=== PATIENT | male | born 1955 | race African-American/Black ===

== ENCOUNTER 2016-11-11 12:50 | Inpatient (IN) | payer OTHER ==
[2016-11-11 14:13] VITALS: BMI 26.2
[2016-11-11] MEDS ORDERED: hydrOXYzine PAMOATE 50 MG CAPSULE (FP) PO PRN (17:09)
[2016-11-11] MEDS ORDERED: MAGNESIUM HYDROX 2400MG/30ML ORAL SUSPENSION 30 ML CUP PO PRN (17:09)
[2016-11-11] MEDS ORDERED: chlordiazePOXIDE HCL 25 MG CAPSULE PO PRN (17:09)
[2016-11-11] MEDS ORDERED: ACETAMINOPHEN 325 MG TABLET (FP) PO PRN (17:09)
[2016-11-11] MEDS ORDERED: MENTHOL/PHENOL 1 EACH UD MM PRN (17:09)
[2016-11-11] MEDS ORDERED: chlordiazePOXIDE HCL 25 MG CAPSULE PO ONE (17:09)
[2016-11-11] MEDS ORDERED: MAGNESIUM CITRATE 300 ML BOTTLE PO PRN (17:09)
[2016-11-11] MEDS ORDERED: IBUPROFEN 400 MG TABLET (FP) PO PRN (17:09)
[2016-11-11] MEDS ORDERED: LOPERAMIDE HCL 2 MG CAPSULE PO PRN (17:09)
[2016-11-11] MEDS ORDERED: MAG HYDROX/AL HYDROX/SIMETH 30 ML UNIT-DOSE CUP PO PRN (17:09)
[2016-11-11] MEDS ORDERED: NICOTINE POLACRILEX 2 MG GUM BC PRN (17:09)
[2016-11-11] MEDS ORDERED: P-EPHED 60MG/TRIPROLIDI 2.5MG TABLET PO PRN (17:09)
[2016-11-11] MEDS ORDERED: guaiFENesin/D-METHORPHAN HB 10 ML UNIT-DOSE CUPS PO PRN (17:09)
--- NOTE | 2016-11-11 17:17 | HP ---
CIWA Score - CIWA Score Nausea/Vomitin-Mild Nausea/No Vomiting (diarrhea) Muscle Tremors: 4-Moderate,w/Arms Extend Anxiety: 4-Mod. Anxious/Guarded Agitation: 4-Moderately Restless Paroxysmal Sweats: 3 Orientation: 0-Oriented Tacttile Disturbances: 0-None Auditory Disturbances: 0-None Visual Disturbances: 1-Very Mild Sensitivity Headache: 0-None Present CIWA-Ar Total Score: 17 Admission ROS BHS - HPI Chief Complaint: Withdrawal sx. Allergies/Adverse Reactions: Allergies Allergy/AdvReac Type Severity Reaction Status Date / Time No Known Drug Allergies Allergy Unknown Verified 11/17/11 17:00 cream cheese Allergy Mild Hives Uncoded 11/17/11 15:09 History of Present Illness: 61 y/o man with a long hx. of alcoholism is admitted for detox. Pt. has been in previous detox,report one yr. sobriety. Exam Limitations: No Limitations - Ebola screening Have you traveled outside of the country in the last 21 days: No Have you had contact with anyone from an Ebola affected area: No Have you been sick,other than usual withdrawal symptoms: No Do you have a fever: No - Review of Systems Constitutional: Diaphoresis EENT: reports: No Symptoms Reported Respiratory: reports: No Symptoms reported GI: reports: Diarrhea, Nausea, Abdominal cramping : reports: No Symptoms Reported Musculoskeletal: reports: No Symptoms Reported Integumentary: reports: Sweating Neuro: reports: Tremors, Other (Blackouts) Endocrine: reports: No Symptoms Reported Hematology: reports: No Symptoms Reported Psychiatric: reports: No Sypmtoms Reported Other Systems: Reviewed and Negative Patient History - Patient Medical History Hx Anemia: No Hx Asthma: No Hx Chronic Obstructive Pulmonary Disease (COPD): No Hx Cancer: No Hx Cardiac Disorders: No Hx Congestive Heart Failure: No Hx Hypertension: Yes (Metoprolol 25mg daily) Hx Hypercholesterolemia: Yes (zocor 20) Hx Pacemaker: No HX Cerebrovascular Accident: No Hx Seizures: No Hx Dementia: No Hx Diabetes: No Hx Gastrointestinal Disorders: No Hx Liver Disease: No Hx Genitourinary Disorders: No Hx Sexually Transmitted Disorders: No Hx Renal Disease (ESRD): No Hx Thyroid Disease: No Hx Human Immunodeficiency Virus (HIV): No Hx Hepatitis C: No Hx Depression: No Hx Suicide Attempt: No Hx Bipolar Disorder: No Hx Schizophrenia: No - Patient Surgical History Past Surgical History: Yes Hx Neurologic Surgery: No Hx Cataract Extraction: No Hx Cardiac Surgery: No Hx Lung Surgery: No Hx Breast Surgery: No Hx Breast Biopsy: No Hx Abdominal Surgery: No Hx Appendectomy: No Hx Cholecystectomy: No Hx Genitourinary Surgery: No Hx Section: No Hx Orthopedic Surgery: No Other Surgical History: hx of tonsilectomy Anesthesia Reaction: No - PPD History Previous Implant?: Yes Documented Results: Negative w/proof Date: 11/19/11 Results: 0 mm PPD to be Administered?: Yes - Smoking Cessation Smoking history: Current every day smoker Have you smoked in the past 12 months: Yes Aproximately how many cigarettes per day: 10 Hx Chewing Tobacco Use: No Initiated information on smoking cessation: Yes 'Breaking Loose' booklet given: 11/11/16 - Substance & Tx. History Hx Alcohol Use: Yes Hx Substance Use: Yes Substance Use Type: Alcohol, Cocaine Hx Substance Use Treatment: Yes (Detox in 2011,) - Substances Abused Alcohol Route: Oral Frequency: Daily Amount used: pint henessy, 6pk beer Age of first use: 13 Date of Last Use: 11/10/16 Cocaine Route: Inhalation Frequency: Daily Amount used: $100 Age of first use: 28 Date of Last Use: 11/10/16 Family Disease History - Family Disease History Family Disease History: Diabetes: Father (HTN), Heart Disease: Father Admission Physical Exam BHS - Vital Signs Vital Signs: Vital Signs - 24 hr 11/11/16 14:10 Temperature 97.2 F L Pulse Rate 73 Respiratory 20 Rate Blood Pressure 113/56 - Physical General Appearance: Yes: Tremorous, Irritable, Sweating, Anxious HEENTM: Yes: Within Normal Limits Respiratory: Yes: Chest Non-Tender, Lungs Clear, Normal Breath Sounds Neck: Yes: Supple Breast: Yes: Breast Exam Deferred Cardiology: Yes: Regular Rhythm, Regular Rate, S1, S2 Abdominal: Yes: Normal Bowel Sounds, Non Tender, Soft Genitourinary: Yes: Within Normal Limits Back: Yes: Within Normal Limits Musculoskeletal: Yes: Within Normal Limits Extremities: Yes: Tremors Neurological: Yes: Fully Oriented, Alert Integumentary: Yes: Diaphoresis Lymphatic: Yes: Within Normal Limits - Diagnostic (1) Alcohol dependence with uncomplicated withdrawal Current Visit: Yes Status: Acute (2) Cocaine dependence, uncomplicated Current Visit: Yes Status: Acute Cleared for Admission [facility] - Detox or Rehab [facility] Level of Care: Medically Managed Detox Regimen/Protocol: Librium [facility] Breath Alcohol Content Breath Alcohol Content: 0 Urine Drug Screen - Results Drug Screen Negative: No Urine Drug Screen Results: TAMAR-Cocaine, BZO-Benzodiazepines
[2016-11-11] MEDS: NICOTINE 21 MG/24 HOURS TOPICAL PATCH TD SCH (18:29)
[2016-11-11] MEDS: METOPROLOL TARTRATE 25 MG TABLET (FP) PO SCH (18:31)
[2016-11-11 22:08] LABS: URINE APPEARANCE CLEAR; URINE BILIRUBIN NEGATIVE (NEGATIVE); URINE BLOOD NEGATIVE (NEGATIVE); URINE COLOR LTYELLOW; URINE GLUCOSE (UA) NEGATIVE (NEGATIVE); URINE KETONE NEGATIVE (NEGATIVE); URINE LEUK ESTERASE NEGATIVE (NEGATIVE); URINE NITRITE NEGATIVE (NEGATIVE); URINE PROTEIN NEGATIVE (NEGATIVE); URINE UROBILINOGEN NEGATIVE mg/dL (0.2-1.0)
[2016-11-11] MEDS: ATORVASTATIN CA 20 MG TABLET (FP) PO SCH (22:12)
[2016-11-11] MEDS: chlordiazePOXIDE HCL 25 MG CAPSULE PO SCH (22:12)
[2016-11-11] MEDS: THIAMINE HCL 100 MG TABLET (FP) PO SCH (22:12)
[2016-11-11] MEDS: diphenhydrAMINE HCL 50 MG CAPSULE PO PRN (22:13)
[2016-11-12] MEDS: chlordiazePOXIDE HCL 25 MG CAPSULE PO SCH ×4 (05:31→22:06)
[2016-11-12 10:09] LABS: MCH 27.8 pg (25.7-33.7); MCHC 32.3 g/dl (32.0-35.9); MEAN PLT VOLUME 8.9 fl (7.5-11.1); PLATELET COUNT 237 K/MM3 (134-434); RDW 13.9 % (11.9-15.9)
[2016-11-12 10:18] LABS: ALBUMIN 3.3 g/dl (3.4-5.0); ANION GAP 8 (8-16); CALCIUM 8.7 mg/dL (8.5-10.1); CO2 27 mmol/L (21-32); GLUCOSE,RANDOM 139 mg/dL (74-106)
[2016-11-12 10:22] LABS: ALK PHOS 78 U/L (45-117); BILIRUBIN,TOTAL 0.4 mg/dL (0.2-1.0); CREATININE 1.1 mg/dL (0.7-1.3); SGOT/AST 17 U/L (15-37); SGPT/ALT 44 U/L (12-78); TOT PROT 6.4 g/dl (6.4-8.2)
--- NOTE | 2016-11-12 10:40 | PN ---
S Progress Note (SOAP) Subjective: ALERT,IRRITABLE,ANXIOUS,INTERRUPTED SLEEP,TREMOR Objective: 11/12/16 10:37 Vital Signs Temperature 96.8 F L 11/12/16 09:51 Pulse Rate 77 11/12/16 09:51 Respiratory Rate 18 11/12/16 09:51 Blood Pressure 129/71 11/12/16 09:51 O2 Sat by Pulse Oximetry (%) EKG NSR,NORMAL ECG Laboratory Last Values WBC 6.0 K/mm3 (4.0-10.0) 11/12/16 07:00 RBC 4.46 M/mm3 (4.00-5.60) 11/12/16 07:00 Hgb 12.4 GM/dL (11.7-16.9) 11/12/16 07:00 Hct 38.4 % (35.4-49) 11/12/16 07:00 MCV 86.0 fl (80-96) 11/12/16 07:00 MCH 27.8 pg (25.7-33.7) 11/12/16 07:00 MCHC 32.3 g/dl (32.0-35.9) 11/12/16 07:00 RDW 13.9 % (11.9-15.9) 11/12/16 07:00 Plt Count 237 K/MM3 (134-434) 11/12/16 07:00 MPV 8.9 fl (7.5-11.1) 11/12/16 07:00 Sodium 143 mmol/L (136-145) 11/12/16 07:00 Potassium 3.9 mmol/L (3.5-5.1) 11/12/16 07:00 Chloride 108 mmol/L (98-107) H 11/12/16 07:00 Carbon Dioxide 27 mmol/L (21-32) 11/12/16 07:00 Anion Gap 8 (8-16) 11/12/16 07:00 BUN 13 mg/dL (7-18) 11/12/16 07:00 Creatinine 1.1 mg/dL (0.7-1.3) 11/12/16 07:00 Creat Clearance w eGFR > 60 (>60) 11/12/16 07:00 Random Glucose 139 mg/dL (74-106) H 11/12/16 07:00 Calcium 8.7 mg/dL (8.5-10.1) 11/12/16 07:00 Total Bilirubin 0.4 mg/dL (0.2-1.0) D 11/12/16 07:00 AST 17 U/L (15-37) D 11/12/16 07:00 ALT 44 U/L (12-78) 11/12/16 07:00 Alkaline Phosphatase 78 U/L (45-117) 11/12/16 07:00 Total Protein 6.4 g/dl (6.4-8.2) 11/12/16 07:00 Albumin 3.3 g/dl (3.4-5.0) L 11/12/16 07:00 Urine Color Ltyellow 11/11/16 21:45 Urine Appearance Clear 11/11/16 21:45 Urine pH 5.0 (5.0-8.0) 11/11/16 21:45 Urine Protein Negative (NEGATIVE) 11/11/16 21:45 Urine Glucose (UA) Negative (NEGATIVE) 11/11/16 21:45 Urine Ketones Negative (NEGATIVE) 11/11/16 21:45 Urine Blood Negative (NEGATIVE) 11/11/16 21:45 Urine Nitrite Negative (NEGATIVE) 11/11/16 21:45 Urine Bilirubin Negative (NEGATIVE) 11/11/16 21:45 Urine Urobilinogen Negative mg/dL (0.2-1.0) 11/11/16 21:45 Ur Leukocyte Esterase Negative (NEGATIVE) 11/11/16 21:45 Assessment: 11/12/16 10:39 WITHDRAWAL SYMPTOM Plan: CONTINUE DETOX,INITIAL GLUCOSE 139,FASTING GLUCOSE IN AM
[2016-11-12] MEDS: METOPROLOL TARTRATE 25 MG TABLET (FP) PO SCH (11:01)
[2016-11-12] MEDS: PRENATAL VITAMINS W/ FOLIC ACID TABLET (FP) PO SCH (11:01)
[2016-11-12] MEDS: NICOTINE 21 MG/24 HOURS TOPICAL PATCH TD SCH (11:03)
--- NOTE | 2016-11-12 11:15 | EKG ---
Test Reason : Blood Pressure : / mmHG Vent. Rate : 073 BPM Atrial Rate : 073 BPM P-R Int : 170 ms QRS Dur : 098 ms QT Int : 410 ms P-R-T Axes : 069 -27 -02 degrees QTc Int : 451 ms NORMAL SINUS RHYTHM NORMAL ECG NO PREVIOUS ECGS AVAILABLE Confirmed by MATT NOBLES MD ([id number]) on 11/12/2016 11:15:01 AM Referred By: Confirmed By:MATT NOBLES MD
[2016-11-12] MEDS ORDERED: PNEUMOC 13-VAL CONJ-DIP CRM/PF 0.5 ML DISP.SYRIN IM ONE (12:00)
[2016-11-12] MEDS: THIAMINE HCL 100 MG TABLET (FP) PO SCH (22:05)
[2016-11-12] MEDS: diphenhydrAMINE HCL 50 MG CAPSULE PO PRN (22:05)
[2016-11-12] MEDS: ATORVASTATIN CA 20 MG TABLET (FP) PO SCH (22:06)
[2016-11-13] MEDS: chlordiazePOXIDE HCL 25 MG CAPSULE PO SCH ×3 (06:06→17:30)
[2016-11-13] MEDS: PRENATAL VITAMINS W/ FOLIC ACID TABLET (FP) PO SCH (10:59)
[2016-11-13] MEDS: METOPROLOL TARTRATE 25 MG TABLET (FP) PO SCH (10:59)
[2016-11-13] MEDS: NICOTINE 21 MG/24 HOURS TOPICAL PATCH TD SCH (10:59)
--- NOTE | 2016-11-13 12:18 | PN ---
[facility] CIWA - CIWA Score Nausea/Vomitin Muscle Tremors: 3 Anxiety: 3 Agitation: 2 Paroxysmal Sweats: 1-Minimal Palms Moist Orientation: 0-Oriented Tacttile Disturbances: 1-Very Mild Itch/Numbness Auditory Disturbances: 1-Very Mild Visual Disturbances: 1-Very Mild Sensitivity Headache: 2-Mild CIWA-Ar Total Score: 17 S Progress Note (SOAP) Subjective: ALERT,IRRITABLE,ANXIOUS,INTERRUPTED SLEEP,INSOMNIA Objective: 11/13/16 12:16 Vital Signs Temperature 97.2 F L 11/13/16 10:23 Pulse Rate 85 11/13/16 10:23 Respiratory Rate 18 11/13/16 10:23 Blood Pressure 119/74 11/13/16 10:23 O2 Sat by Pulse Oximetry (%) EKG NSR 11/13/16 12:16 Laboratory Last Values WBC 6.0 K/mm3 (4.0-10.0) 11/12/16 07:00 RBC 4.46 M/mm3 (4.00-5.60) 11/12/16 07:00 Hgb 12.4 GM/dL (11.7-16.9) 11/12/16 07:00 Hct 38.4 % (35.4-49) 11/12/16 07:00 MCV 86.0 fl (80-96) 11/12/16 07:00 MCH 27.8 pg (25.7-33.7) 11/12/16 07:00 MCHC 32.3 g/dl (32.0-35.9) 11/12/16 07:00 RDW 13.9 % (11.9-15.9) 11/12/16 07:00 Plt Count 237 K/MM3 (134-434) 11/12/16 07:00 MPV 8.9 fl (7.5-11.1) 11/12/16 07:00 Sodium 143 mmol/L (136-145) 11/12/16 07:00 Potassium 3.9 mmol/L (3.5-5.1) 11/12/16 07:00 Chloride 108 mmol/L (98-107) H 11/12/16 07:00 Carbon Dioxide 27 mmol/L (21-32) 11/12/16 07:00 Anion Gap 8 (8-16) 11/12/16 07:00 BUN 13 mg/dL (7-18) 11/12/16 07:00 Creatinine 1.1 mg/dL (0.7-1.3) 11/12/16 07:00 Creat Clearance w eGFR > 60 (>60) 11/12/16 07:00 Random Glucose 139 mg/dL (74-106) H 11/12/16 07:00 Fasting Glucose 140 mg/dL (70-105) H 11/13/16 08:00 Calcium 8.7 mg/dL (8.5-10.1) 11/12/16 07:00 Total Bilirubin 0.4 mg/dL (0.2-1.0) D 11/12/16 07:00 AST 17 U/L (15-37) D 11/12/16 07:00 ALT 44 U/L (12-78) 11/12/16 07:00 Alkaline Phosphatase 78 U/L (45-117) 11/12/16 07:00 Total Protein 6.4 g/dl (6.4-8.2) 11/12/16 07:00 Albumin 3.3 g/dl (3.4-5.0) L 11/12/16 07:00 Urine Color Ltyellow 11/11/16 21:45 Urine Appearance Clear 11/11/16 21:45 Urine pH 5.0 (5.0-8.0) 11/11/16 21:45 Ur Specific [place] 1.025 (1.005-1.025) 11/11/16 21:45 Urine Protein Negative (NEGATIVE) 11/11/16 21:45 Urine Glucose (UA) Negative (NEGATIVE) 11/11/16 21:45 Urine Ketones Negative (NEGATIVE) 11/11/16 21:45 Urine Blood Negative (NEGATIVE) 11/11/16 21:45 Urine Nitrite Negative (NEGATIVE) 11/11/16 21:45 Urine Bilirubin Negative (NEGATIVE) 11/11/16 21:45 Urine Urobilinogen Negative mg/dL (0.2-1.0) 11/11/16 21:45 Ur Leukocyte Esterase Negative (NEGATIVE) 11/11/16 21:45 RPR Titer Nonreactive (NONREACTIVE) 11/12/16 07:00 Assessment: 11/13/16 12:17 WITHDRAWAL SYMPTOM Plan: CONTINUE DETOX,BGM BID MONITORING,FASTING GLUCOSE 140
[2016-11-13] MEDS: chlordiazePOXIDE 5 MG CAPSULE PO SCH (22:09)
[2016-11-13] MEDS: ATORVASTATIN CA 20 MG TABLET (FP) PO SCH (22:09)
[2016-11-13] MEDS: diphenhydrAMINE HCL 50 MG CAPSULE PO PRN (22:09)
[2016-11-13] MEDS: THIAMINE HCL 100 MG TABLET (FP) PO SCH (22:09)
[2016-11-14] MEDS: diphenhydrAMINE HCL 50 MG CAPSULE PO PRN ×2 (01:18→22:28)
[2016-11-14] MEDS: chlordiazePOXIDE 5 MG CAPSULE PO SCH ×3 (06:25→18:08)
[2016-11-14] MEDS: METOPROLOL TARTRATE 25 MG TABLET (FP) PO SCH (11:01)
[2016-11-14] MEDS: PRENATAL VITAMINS W/ FOLIC ACID TABLET (FP) PO SCH (11:01)
[2016-11-14] MEDS: NICOTINE 21 MG/24 HOURS TOPICAL PATCH TD SCH (11:04)
--- NOTE | 2016-11-14 14:20 | PN ---
S Progress Note (SOAP) Subjective: alert,irritable,anxious,interrupted sleep Objective: 11/14/16 14:18 Vital Signs Temperature 97.0 F L 11/14/16 10:00 Pulse Rate 84 11/14/16 10:00 Respiratory Rate 18 11/14/16 10:00 Blood Pressure 139/77 11/14/16 10:00 O2 Sat by Pulse Oximetry (%) Assessment: 11/14/16 14:19 withdrawal symptom Plan: continue detox,discharge in am at 0700am,patient will follow up with his physician in [place] for bgm monitoring
[2016-11-14] MEDS: ATORVASTATIN CA 20 MG TABLET (FP) PO SCH (22:28)
[2016-11-14] MEDS: THIAMINE HCL 100 MG TABLET (FP) PO SCH (22:28)
[2016-11-14] MEDS: chlordiazePOXIDE HCL 10 MG CAPSULE PO SCH (22:29)
[2016-11-15 06:24] VITALS: BP 116/74; PULSE 67; TEMP 98.1
[2016-11-15] MEDS: chlordiazePOXIDE HCL 10 MG CAPSULE PO SCH (06:28)
--- NOTE | 2016-11-15 08:21 | DS ---
[facility] Detox Discharge Summary Admission Date: 11/11/16 Discharge Date: 11/15/16 - History Present History: Alcohol Dependence, Cocaine Dependence Additional Comments: FOLLOW UP WITH AFTER [facility] PROGRAM ARRANGEMENT AND PMD FOR MEDICAL PROBLEM AND HYPERGLYCEMIA Pertinent Past History: HEYPERTENSION HYPERCHOLESTEROLEMIA - Physical Exam Results Vital Signs: Vital Signs Temperature 98.1 F 11/15/16 06:23 Pulse Rate 67 11/15/16 06:23 Respiratory Rate 16 11/15/16 06:23 Blood Pressure 116/74 11/15/16 06:23 O2 Sat by Pulse Oximetry (%) Pertinent Admission Physical Exam Findings: WITHDRAWAL SYMPTOM - Treatment Hospital Course: Detox Protocol Followed, Detoxed Safely, Responded well, Discharged Condition Good Patient has Accepted a Rehab Referral to: DECLINED - Medication Discharge Medications: Ambulatory Orders Atorvastatin Ca [Lipitor] 20 mg PO HS 11/13/16 Metoprolol Tartrate [Lopressor] 25 mg PO DAILY 11/13/16 - AMA Did Patient Leave Against Medical Advice: No
== END 2016-11-15 07:10 | disposition home or self-care (01) | DRG 774 ==
LOC: YASAS 12:50 → Y6N 17:10
PROVIDERS: ADMIT Internal Medicine; ATTEND Internal Medicine
PROC: HZ2ZZZZ Detoxification Services for Substance Abuse Treatment (ICD-10-PCS; principal; 2016-11-11)
DX: F10.230 Alcohol dependence with withdrawal, uncomplicated (principal); F14.20 Cocaine dependence, uncomplicated; F17.210 Nicotine dependence, cigarettes, uncomplicated; I10 Essential (primary) hypertension; E78.00 Pure hypercholesterolemia, unspecified; R73.9 Hyperglycemia, unspecified; Z91.011 Allergy to milk products; Z59.0 Homelessness
CPT/HCPCS: 36415; 80053; 81003; 82947; 85027; 86593; 93005; 93010